=== PATIENT | male | born 1950 | race Caucasian/White ===

== ENCOUNTER 2017-01-22 12:27 | Inpatient (IN) | payer OTHER ==
[~2017-01-22] VITALS: Ht 170.2 cm; Wt 81.5 kg
--- NOTE | 2017-01-22 12:42 | EMERGENCY ROOM VISIT NOTE ---
History Report prepared by Marlene: Fransico Haas Under the Supervision of: Dr. Chao Yang M.D. First contact with patient: 12:37 Chief Complaint: CHEST PAIN Stated Complaint: CHEST PAINS, SENT BY DR JOHNSON- HIS PATIENT History of Present Illness The patient is a 66 year old male who presents to the Emergency Room with complaints of intermittent, burning, angina beginning a week ago. The patient states he has a history of these episodes. He reports he would take nitroglycerin, and it would go away. The patient notes the difference now is that he has to use more nitroglycerin than usual. He states he uses one pill throughout the day. The patient reports he is up every hour in the night because of his discomfort, and he uses 3-5 pills a night. He notes he has a history of a cardiac catheterization 9 year ago and was told he could have stents placed, but the combat control manager would not do it and recommended open heart surgery. The patient states he has not had stents placed or open heart surgery. He reports he currently does not have discomfort. The patient notes he took two baby aspirins 4 hours ago. Source of History: patient Onset: week ago Position: chest Quality: burning, other (angina) Timing: intermittent Modifying Factors (Relieving): other (nitroglycerin) Note: Denies any other symptoms Review of Systems See HPI for pertinent positives & negatives. A total of 10 systems reviewed and were otherwise negative. Past Medical & Surgical Medical Problems: (1) Bladder stone (2) Diabetes (3) Heart disease (4) HTN (hypertension) (5) Kidney disease (6) Unstable angina Family History Heart disease Hypertension Kidney disease Kidney stones Social History Smokeless Tobacco Use: No Alcohol Use: none Marital Status: Housing Status: lives with family Occupation Status: employed Current/Historical Medications Scheduled Amlodipine (Norvasc), 5 MG PO DAILY Ascorbic Acid (Ascorbic Acid), 1,000 MG PO DAILY Aspirin (Aspirin Ec), 81 MG PO DAILY Glimepiride (Glimepiride), 1 TAB PO BID Isosorbide Dinitrate (Isordil), 10 MG PO TID Metformin Hcl Er (Glucophage Er), 2 TABS PO DAILY Multivitamin (Multivitamin), 1 TAB PO DAILY Nebivolol Hcl (Bystolic), 20 MG PO DAILY Nitroglycerin (Nitrostat), 0.6 MG UT PRN Allergies Coded Allergies: Ciprofloxacin (Verified Allergy, Unknown, RASH, 01/22/17) Lisinopril (Verified Allergy, Unknown, SHORTNESS OF BREATH,RASH, 01/22/17) Physical Exam Vital Signs Date Time Temp Pulse Resp B/P (MAP) Pulse Ox O2 Delivery O2 Flow Rate FiO2 01/22/17 16:49 81 01/22/17 16:00 76 19 93 01/22/17 15:30 78 14 93 01/22/17 15:00 83 17 01/22/17 14:31 173/92 01/22/17 14:30 81 20 94 01/22/17 14:01 145/91 01/22/17 14:00 77 20 94 01/22/17 13:42 80 159/85 92 Nasal Cannula 2.0 01/22/17 13:31 159/85 01/22/17 13:30 81 16 91 01/22/17 13:17 79 16 92 Nasal Cannula 2.0 01/22/17 12:59 93 Nasal Cannula 01/22/17 12:50 87 Room Air 01/22/17 12:50 90 Nasal Cannula 2.0 01/22/17 12:47 88 01/22/17 12:38 87 Room Air 01/22/17 12:38 37.1 89 20 155/94 90 Room Air Physical Exam GENERAL: Patient is a healthy-appearing well-nourished 66 year old male. HEAD: Normocephalic atraumatic EYES: Ocular movements intact pupils equal and react to light OROPHARYNX mucous membranes are moist no exudates present no erythema or edema present NECK: Supple no nuchal rigidity CHEST: Good equal expansion LUNGS: Clear and equal to auscultation CARDIAC: Normal S1 and S2 ABDOMEN: Soft nontender no guarding BACK: No CVA tenderness EXTREMITIES: No pain upon palpation normal muscle strength in all groups no clubbing cyanosis or edema NEURO: Patient is following commands and answering questions appropriately. Alert and oriented x3 Cranial Nerves 2-12 grossly intact Medical Decision & Procedures ER Provider Diagnostic Interpretation: X-ray results as stated below per interpretation by me and the radiologist: CHEST ONE VIEW PORTABLE HISTORY: Atypical CHEST PAIN COMPARISON: None. FINDINGS: No pneumothorax. Small bilateral pleural effusions. The heart is mildly enlarged. There is diffuse interstitial and vascular thickening with bibasilar densities. IMPRESSION: 1. Cardiomegaly, small bilateral pleural effusions, and interstitial thickening consistent with mild pulmonary edema. 2. Bibasilar densities may represent the layering pleural fluid or consolidation. Electronically signed by: Henrik Castano M.D. 01/22/2017 2:03 PM Dictated Date/Time: 01/22/2017 2:02 PM Laboratory Results 01/22/17 12:47 Red Blood Count 4.71, Mean Corpuscular Volume 83.9, Mean Corpuscular Hemoglobin 30.1, Mean Corpuscular Hemoglobin Concent 35.9, Mean Platelet Volume 10.7, Neutrophils (%) (Auto) 73.0, Lymphocytes (%) (Auto) 18.9, Monocytes (%) (Auto) 5.6, Eosinophils (%) (Auto) 1.3, Basophils (%) (Auto) 0.8, Neutrophils # (Auto) 7.59, Lymphocytes # (Auto) 1.96, Monocytes # (Auto) 0.58, Eosinophils # (Auto) 0.14, Basophils # (Auto) 0.08 01/22/17 12:47 Test 01/22/17 12:47 01/22/17 14:13 01/22/17 14:42 White Blood Count 10.39 K/uL (4.8-10.8) Red Blood Count 4.71 M/uL (4.7-6.1) Hemoglobin 14.2 g/dL (14.0-18.0) Hematocrit 39.5 % (42-52) Mean Corpuscular Volume 83.9 fL (80-100) Mean Corpuscular Hemoglobin 30.1 pg (25-34) Mean Corpuscular Hemoglobin Concent 35.9 g/dl (32-36) Platelet Count 235 K/uL (130-400) Mean Platelet Volume 10.7 fL (7.4-10.4) Neutrophils (%) (Auto) 73.0 % Lymphocytes (%) (Auto) 18.9 % Monocytes (%) (Auto) 5.6 % Eosinophils (%) (Auto) 1.3 % Basophils (%) (Auto) 0.8 % Neutrophils # (Auto) 7.59 K/uL (1.4-6.5) Lymphocytes # (Auto) 1.96 K/uL (1.2-3.4) Monocytes # (Auto) 0.58 K/uL (0.11-0.59) Eosinophils # (Auto) 0.14 K/uL (0-0.5) Basophils # (Auto) 0.08 K/uL (0-0.2) RDW Standard Deviation 45.5 fL (36.4-46.3) RDW Coefficient of Variation 15.0 % (11.5-14.5) Immature Granulocyte % (Auto) 0.4 % Immature Granulocyte # (Auto) 0.04 K/uL (0.00-0.02) Prothrombin Time 10.9 SECONDS (9.0-12.0) Prothromb Time International Ratio 1.0 (0.9-1.1) Activated Partial Thromboplast Time 24.5 SECONDS (21.0-31.0) Partial Thromboplastin Ratio 0.9 Anion Gap 10.0 mmol/L (3-11) Est Creatinine Clear Calc Drug Dose 37.1 ml/min Estimated GFR () 38.9 Estimated GFR (Non- 33.6 BUN/Creatinine Ratio 18.4 (10-20) Estimated Average Glucose 209 mg/dl Hemoglobin A1c 8.9 % (4.5-5.6) Calcium Level 9.2 mg/dl (8.5-10.1) Total Bilirubin 0.7 mg/dl (0.2-1) Direct Bilirubin 0.2 mg/dl (0-0.2) Aspartate Amino Transf (AST/SGOT) 8 U/L (15-37) Alanine Aminotransferase (ALT/SGPT) 17 U/L (12-78) Alkaline Phosphatase 73 U/L (45-117) Total Creatine Kinase 56 U/L (39-308) Creatine Kinase MB 1.1 ng/ml (0.5-3.6) Creatine Kinase MB Ratio 2.0 (0-3.0) Troponin I < 0.015 ng/ml (0-0.045) Pro-B-Type Natriuretic Peptide 803 pg/ml (0-900) Total Protein 7.1 gm/dl (6.4-8.2) Albumin 3.5 gm/dl (3.4-5.0) Lipase 369 U/L (73-393) Beta-Hydroxybutyric Acid 2.03 mg/dL (0.2-2.81) Arterial Blood pH 7.43 (7.35-7.45) Arterial Blood Partial Pressure CO2 33 mmHg (35-46) Arterial Blood Partial Pressure O2 75 mm/Hg (80-95) Arterial Blood HCO3 21 mmol/L (19-24) Arterial Blood Oxygen Saturation 94.7 % (90-95) Arterial Blood Base Excess -2.0 mEq/L (-9-1.8) Arterial Blood Gas Delivery RA Misha Test POS (POS) Bedside Glucose 356 mg/dl (70-99) Labs reviewed by ED physician. Medications Administered Medications (Trade) Dose Ordered Sig/Naomi Route Start Time Stop Time Status Last Admin Dose Admin Aspirin (Aspirin Chew) 324 mg NOW STAT PO 01/22/17 12:43 01/22/17 12:44 DC 01/22/17 13:03 324 MG Levalbuterol (Xopenex 0.63 Mg/ 3 Ml Neb) 0.63 mg NOW STAT INH 01/22/17 12:58 01/22/17 13:00 DC 01/22/17 13:15 0.63 MG Insulin Human Regular (novoLIN-R U-100 PER UNIT) 10 units NOW STAT IV 01/22/17 13:36 01/22/17 13:38 DC 01/22/17 14:22 10 UNITS Furosemide (Lasix Inj) 40 mg NOW STAT IV 01/22/17 14:07 01/22/17 14:08 DC 01/22/17 14:24 40 MG Heparin Sodium/ Dextrose 1 ea Q15M N/A 01/22/17 16:41 02/21/17 16:40 01/22/17 17:00 1 EA Heparin Sodium/ Dextrose (Heparin 25,000 Unit/500ml D5W) 25,000 unit STK-MED ONCE .ROUTE 01/22/17 16:50 01/22/17 16:51 DC 01/22/17 16:58 25,000 UNIT ECG Indication: chest pain Rate (beats per minute): 86 Rhythm: normal sinus Findings: ST depression (Lateral), no ectopy Comparison ECG Date: no prior available ED Course 1238: Past medical records reviewed. The patient was evaluated in room A09B. A complete history and physical examination was performed. 1243: Ordered Aspirin 324 mg PO 1258: Ordered Levalbuterol 0.63mg INH 1336: Ordered Insulin Human Regular 10 units IV, Sodium Chloride 1000 ml @ 999 mls/hr IV 1341: I discussed the patient's case with [facility]. The patient will be evaluated for further management and care. 1351: Upon reexamination the patient is resting. I discussed results and treatment plan with the patient. He verbalizes agreement and understanding. 1407: Ordered Furosemide 40mg IV Medical Decision Differential diagnosis: Etiologies such as cardiac ischemia, aortic dissection, pulmonary embolism, pneumonia, pneumothorax, musculoskeletal, infections, pericarditis, myocarditis , esophageal rupture, gastrointestinal, as well as others were entertained. This is a 66-year-old male who has a history of significant coronary artery disease who presents to the emergency department after needing order in larger amounts of nitroglycerin at home over the past several weeks. The patient's glucose levels found to be in 400s and he appears to be in acute renal failure. In addition he appears to have bilateral pleural effusions on chest x-ray. The patient is hypoxic in the emergency department therefore he was given breathing treatments and started on Lasix. Due to the elevation in his creatinine we're unable to obtain a CAT scan of the chest in the emergency department. I did discuss the case with the hospitalist service who agreed to see the patient. Patient was in agreement with the treatment plan. Medication Reconcilliation Current Medication List: was personally reviewed by me Blood Pressure Screening Patient's blood pressure: Elevated blood pressure Monitored by hospitalist. Consults Time Called: 1339 Consulting Physician: [facility] Returned Call: 1341 I discussed the patient's case with [facility]. The patient will be evaluated for further management and care. Impression Primary Impression: Chest pain Additional Impressions: Acute renal failure Hyperglycemia Scribe Attestation The scribe's documentation has been prepared under my direction and personally reviewed by me in its entirety. I confirm that the note above accurately reflects all work, treatment, procedures, and medical decision making performed by me. Departure Information Dispostion Being Evaluated By Hospitalist Referrals Manuelito Johnson M.D. (PCP) Patient Instructions [facility] Problem Qualifiers Primary Impression: Chest pain Chest pain type: unspecified Qualified Codes: R07.9 - Chest pain, unspecified Additional Impressions: Acute renal failure Acute renal failure type: unspecified Qualified Codes: N17.9 - Acute kidney failure, unspecified
[2017-01-22] MEDS ORDERED: ASPIRIN 81 MG CHEW PO STA (12:43)
[2017-01-22] MEDS ORDERED: LEVALBUTEROL 0.63MG/3 ML NEB INH STA (12:58)
[2017-01-22 13:14] LABS: BASO % 0.8 %; BASO ABS # 0.08 K/uL (0-0.2); COMPLETE YES; EOS % 1.3 %; HEMATOCRIT 39.5 % (42-52); IG% 0.4 %; LYMPH % 18.9 %; LYMPH ABS # 1.96 K/uL (1.2-3.4); MEAN CELL VOLUME 83.9 fL (80-100); MEAN CORPUSCULAR HEMOGLOBIN 30.1 pg (25-34); MEAN CORPUSCULAR HGB CONC 35.9 g/dl (32-36); MEAN PLATELET VOLUME 10.7 fL (7.4-10.4); MONO % 5.6 %; PLATELET COUNT 235 K/uL (130-400); RED BLOOD COUNT 4.71 M/uL (4.7-6.1); WHITE BLOOD COUNT 10.39 K/uL (4.8-10.8)
[2017-01-22 13:17] VITALS: PULSE 79; O2SAT 92
[2017-01-22] MEDS ORDERED: NEBI20TA2 PO (13:21)
[2017-01-22] MEDS ORDERED: ASPI81TA28 PO (13:21)
[2017-01-22] MEDS ORDERED: AMLO-110 PO (13:21)
[2017-01-22] MEDS ORDERED: METF500T5 PO (13:21)
[2017-01-22] MEDS ORDERED: ASCO100061 PO (13:21)
[2017-01-22] MEDS ORDERED: ISOS10TA2 PO (13:21)
[2017-01-22] MEDS ORDERED: GLIM2TAB2 PO (13:21)
[2017-01-22] MEDS ORDERED: MULT-506 PO (13:21)
[2017-01-22] MEDS ORDERED: [UNRECOGNIZED DRUG - CODE] UT (13:21)
[2017-01-22 13:26] LABS: PARTIAL THROMBOPLASTIN RATIO 0.9; PROTHROMBIN TIME (PATIENT) 10.9 SECONDS (9.0-12.0)
[2017-01-22 13:35] LABS: ALT/SGPT 17 U/L (12-78); AST/SGOT 8 U/L (15-37); BLOOD UREA NITROGEN 37 mg/dl (7-18); BUN/CREATININE RATIO 18.4 (10-20); CALCIUM 9.2 mg/dl (8.5-10.1); CARBON DIOXIDE 21 mmol/L (21-32); CHLORIDE 102 mmol/L (98-107); CREATININE 2.01 mg/dl (0.60-1.40); GLUCOSE 412 mg/dl (70-99); POTASSIUM 4.2 mmol/L (3.5-5.1); SODIUM 133 mmol/L (136-145)
[2017-01-22] MEDS ORDERED: NovoLIN-R INSULIN PER UNIT CHARGE IV STA (13:36)
[2017-01-22] MEDS ORDERED: SODIUM CHLORIDE 0.9% 1000ML 1,000 ML IV STA (13:36)
[2017-01-22 13:40] LABS: ALKALINE PHOSPHATASE 73 U/L (45-117)
--- NOTE | 2017-01-22 14:05 | DIAGNOSTIC IMAGING REPORT ---
CHEST ONE VIEW PORTABLE HISTORY: Atypical CHEST PAIN COMPARISON: None. FINDINGS: No pneumothorax. Small bilateral pleural effusions. The heart is mildly enlarged. There is diffuse interstitial and vascular thickening with bibasilar densities. IMPRESSION: 1. Cardiomegaly, small bilateral pleural effusions, and interstitial thickening consistent with mild pulmonary edema. 2. Bibasilar densities may represent the layering pleural fluid or consolidation. Electronically signed by: Henrik Castano M.D. 01/22/2017 2:03 PM Dictated Date/Time: 01/22/2017 2:02 PM
[2017-01-22] MEDS ORDERED: FUROSEMIDE 40 MG/4 ML VIAL IV STA (14:07)
[2017-01-22 14:12] LABS: BETA-HYDROXYBUTYRATE 2.03 mg/dL (0.2-2.81)
[2017-01-22 14:28] LABS: ESTIMATED AVERAGE GLUCOSE 209 mg/dl; HA1C FLAG Normal (Normal)
[2017-01-22 14:38] LABS: ARTERIAL BLD GAS O2 SATURATION 94.7 % (90-95); ARTERIAL BLOOD GAS HCO3 21 mmol/L (19-24); ARTERIAL BLOOD GAS PO2 75 mm/Hg (80-95); ARTERIAL BLOOD GAS pH 7.43 (7.35-7.45)
[2017-01-22 14:40] LABS: ALLEN TEST POS (POS); O2 ADMINISTRATION RA
[2017-01-22] MEDS ORDERED: ACETAMINOPHEN 325 MG TAB PO PRN (16:00)
[2017-01-22] MEDS ORDERED: NITROGLYCERIN 0.4 MG SL PER TAB CHARGE SL PRN (16:00)
[2017-01-22] MEDS ORDERED: MoRPHine SULFATE 2 MG/ML CARP IV PRN (16:00)
[2017-01-22] MEDS ORDERED: ONDANSETRON INJ 2 MG/ML 2 ML VIAL IV PRN (16:00)
[2017-01-22] MEDS ORDERED: PHARMACY GLYCEMIC MGMT CONSULT PRN (16:44)
[2017-01-22] MEDS ORDERED: HEPARIN 25000 UNIT/500 ML D5W ONE ×2 (16:50→16:51)
[2017-01-22 17:32] VITALS: BP 155/92; PULSE 76; TEMP 36.3; O2SAT 91; Ht 170.2 cm; Wt 81.5 kg
[2017-01-22] MEDS ORDERED: HEPARIN 25,000 UNIT/500ML D5W 500 ML IV PRN (17:45)
[2017-01-22 17:51] VITALS: O2SAT 91
--- NOTE | 2017-01-22 17:59 | HISTORY & PHYSICAL EXAMINATION ---
DATE OF ADMISSION: 01/22/2017 CHIEF COMPLAINT: Chest pain. HISTORY OF PRESENT ILLNESS: This is a 66-year-old male with past medical history significant for CAD, type 2 diabetes, hypertension, hyperlipidemia, BPH, presents with chest pain. The patient had a cardiac catheterization about in 2008 which showed multivessel disease and was advised for CABG. The patient declined and he opted for medical management and patient says he was doing okay if he stayed in his limits, but since last 4 weeks he is reporting more chest pain whenever he exerted or with anxiety or stress and it got more and more worse since last 1 week and he was taking nitro almost every hour in the nighttime, so he went in to see his rubber boots and shoes repairer yesterday and was advised to go to the ER urgently, but patient did not come yesterday. He says he did not had any help to come to the ER, so he came to the ER today. In the ER initially when he came in he was hypoxic on room air and chest x-ray showed some congestion with Lasix and oxygen his oxygenation has improved. He is hemodynamically stable. Denies any nausea, vomiting, no sweating, no dizziness, no headaches, no blurred vision, no cough, no fever, no chills. Has some runny nose. No sore throat, no difficulty swallowing. Normal bowel and bladder movements. Appetite is okay. No blood in the stool, no blood in the urine, had some swelling in the legs, but denies any orthopnea or PND. ALLERGIES: LISINOPRIL, CIPROFLOXACIN. PAST MEDICAL HISTORY: As mentioned above. PAST SURGICAL HISTORY: Cardiac catheterization. MEDICATIONS: Currently, the patient is on Isordil 10 mg p.o. t.i.d., amlodipine 5 mg p.o. daily, nitroglycerin 0.6 mg sublingual p.r.n., metformin ER 1000 mg p.o. daily, Januvia 50 mg p.o. daily, Amaryl 2 mg p.o. b.i.d., Bystolic 20 mg p.o. daily, aspirin 81 mg p.o. daily. FAMILY HISTORY: Significant for father had LA in his 40s and 60s and of LA in his 70s. Mother has renal disease history. SOCIAL HISTORY: . No smoking history. No alcohol, no drug use. REVIEW OF SYMPTOMS: As per HPI. Rest of the review of symptoms negative. PHYSICAL EXAMINATION: GENERAL: The patient is of moderate build, not in distress. VITAL SIGNS: Temperature 37.1, pulse 80, respiratory rate 16, blood pressure 159/85, oxygen 92% on 2 liters. HEENT: No pallor, no icterus. Pupils equal, round, and reactive to light. NECK: No JVD, no neck masses, no carotid bruits. CARDIOVASCULAR: S1, S2 heard, regular rate and rhythm, no murmur, no gallop. RESPIRATORY SYSTEM: Normal AP diameter. No accessory muscle use. No wheezing. Mild bibasilar crackles. ABDOMEN: Soft, bowel sounds present. Nontender. No distention. CENTRAL NERVOUS SYSTEM: Cranial nerves II-XII grossly intact. Nonfocal. EXTREMITIES: Bilateral lower extremity edema present. No erythema seen. LABORATORIES: Sodium 133, potassium 4.2, chloride 102, bicarbonate 21, BUN 37, creatinine 2.01. Glucose 412, HbA1c 8.9, calcium 9.2, total bilirubin 0.7, direct bilirubin 0.2, AST 8, ALT 17, alkaline phosphatase 73, total creatine kinase 56, troponin I less than 0.015. BNP 803, lipase 369. PT 10.9, INR 1, PTT 24.5. ABG; pH 7.4, pCO2 33, pO2 75, bicarbonate 21, oxygen 94% on room air. Chest x-ray shows cardiomegaly, small bilateral pleural effusions and interstitial thickening consistent with mild pulmonary edema, bibasilar density, layering pleural fluid or consolidation. EKG: Shows normal sinus rhythm with rate of [address] depressions in V3, V4, V5 and V6 leads. ASSESSMENT AND PLAN: This is a 66-year-old male who presents with chest pain. 1. Unstable angina, having chest pains every hour in the night taking nitroglycerins, history of coronary artery disease and multivessel disease from cardiac catheterization in 2008 and was advised of coronary artery bypass grafting, but the patient declined and currently on medical management. EKG shows ST depressions in lateral leads. Troponin is negative. We will follow the serial cardiac enzymes, repeat EKGs, echocardiogram. We will place him on IV heparin, nitro paste, continue home medication Bystolic. Hold Isordil while on nitro paste.Close monitor in the tele floor. Cardiology consulted. 2. Possible congestive heart failure. Chest x-ray shows mild pulmonary edema and patient was hypoxic on room air on presentation. Received IV Lasix in the ER. We will follow echocardiogram. We will place him on IV Lasix 20 mg b.i.d., daily weights, I's and O's. Continue nitro paste. 3.Arf on CKD stage 3 .Baseline Cr 1.5 to 1.7. presented with Cr 2.01. Will f/u labs on iv Lasix. 3. Diabetes, HbA1c was 8.9. The patient may need some Lantus on discharge. We will hold metformin, Januvia, and glimepiride and place him on Lantus and insulin sliding scale while in the hospital. Close monitor, pharmacy consult for glycemic management and diabetic teaching. 4. Hypertension. Continue home medication of , amlodipine, Bystolic, currently also on nitro paste. We will monitor the blood pressure. 5. History of benign prostatic hypertrophy. We will monitor for any urinary retention. 6. Deep venous thrombosis prophylaxis, on IV heparin. DISPOSITION: Admit to tele floor. Expect to discharge home and follow with family doctor and cardiology. Level 1 full code. MTDD
[2017-01-22] MEDS ORDERED: INSULIN ASPART 100 UNITS/ML 3 ML PEN SC ONE (18:45)
--- NOTE | 2017-01-22 19:33 | Pharmacy Progress Note ---
Glycemic Control Intl Consult Date of Service Jan 22, 2017. Scope Glycemic Pharmacist consulted by Dr Rios on 01/22/17 for glycemic control and to write orders per [facility] inpatient glycemic control protocol Objective Weight (Kilograms): 82.000 Accuchecks BSG (last 24hrs): Test 01/22/17 12:47 01/22/17 14:42 01/22/17 18:02 Random Glucose 412 mg/dl (70-99) Bedside Glucose 356 mg/dl (70-99) 291 mg/dl (70-99) Laboratory Data (last 24hrs) Test 01/22/17 12:47 Anion Gap 10.0 mmol/L BUN/Creatinine Ratio 18.4 Blood Urea Nitrogen 37 mg/dl Creatinine 2.01 mg/dl Hemoglobin A1c 8.9 % Potassium Level 4.2 mmol/L Sodium Level 133 mmol/L White Blood Count 10.39 K/uL Red Blood Count 4.71 M/uL Hemoglobin 14.2 g/dL Hematocrit 39.5 % Mean Corpuscular Volume 83.9 fL Mean Corpuscular Hemoglobin 30.1 pg Mean Corpuscular Hemoglobin Concent 35.9 g/dl Platelet Count 235 K/uL Mean Platelet Volume 10.7 fL Neutrophils (%) (Auto) 73.0 % Lymphocytes (%) (Auto) 18.9 % Monocytes (%) (Auto) 5.6 % Eosinophils (%) (Auto) 1.3 % Basophils (%) (Auto) 0.8 % Neutrophils # (Auto) 7.59 K/uL Lymphocytes # (Auto) 1.96 K/uL Monocytes # (Auto) 0.58 K/uL Eosinophils # (Auto) 0.14 K/uL Basophils # (Auto) 0.08 K/uL HbA1c Test 01/22/17 12:47 Hemoglobin A1c 8.9 % (4.5-5.6) H Recent Pertinent Medications Outpatient Anti-diabetic Regimen: * metformin ER 1000 mg PO BID plus glimepiride 2 mg PO BID Risk Factors for Insulin Resistance: * IVF: heparin infusion * Diet: type 2 diabetic diet Assessment & Plan ASSESSMENT: * Mr Bright is a 66 y/o M with a PMH of unstable angina who presents with chest pain. He is on two oral antidiabetic medications and he has an elevated HbA1C. His blood sugar on presentation was 412 mg/dL. It decreased to 356 mg/dL and after 10 units of IV insulin was 291 mg/dL. * For Lantus, 0.2 units/kg were selected for tonight's dose and as well as tomorrow as uncertain how much insulin the patient will require. This estimates around 60 units per day which is 0.7 units/kg which is reasonable for this patient. * Weight-based stress of 2 parameters were selected as a starting point for the patient's insulin. This may be adjusted. PLAN FOR INPATIENT GLYCEMIC CONTROL: * Holding outpatient oral diabetes medications * Basal insulin with LANTUS 15 units SQ BID * Correctional Insulin with NOVOLOG / REGULAR per scale ACHS or Q6hrs while NPO * Goal Range: Low 110 mg/dL - High 140 mg/dL * Correction Factor: 30 mg/dL/unit * Nutritional / Prandial insulin per carb ratio of 1 unit per 10 grams CHO consumed * Please note that the plan above was derived based on current level of insulin resistance and hospital stress. These recommendations are appropriate for inpatient admission only. Plan of care upon discharge will need to be reassessed to avoid potential outpatient hypo/hyperglycemia. Thank you.
[2017-01-22 20:00] VITALS: O2SAT 92
[2017-01-22] MEDS: FUROSEMIDE INJ 20 MG in SYRINGE 0 ML IV SCH (20:03)
[2017-01-22] MEDS: NITROGLYCERIN OINT 2% 1GM PACKET EXT SCH (20:06)
[2017-01-22] MEDS: INSULIN ASPART 100 UNITS/ML 3 ML PEN SC SCH (20:09)
[2017-01-22 20:22] VITALS: BP 156/87; PULSE 76; TEMP 36.5; O2SAT 93
[2017-01-22] MEDS ORDERED: INSULIN GLARGINE SOLOSTAR 100 UNITS/ML 3 ML PEN SC SCH ×2 (21:00)
--- NOTE | 2017-01-22 21:30 | Progress Note ---
Internal Med Progress Note Date of Service: Jan 22, 2017. Provider Documentation: Hematuria noted by RN through Odonnell catheter. Patient denies flank pain, bladder symptoms. UA WBC est, RBC, epithelial cells AP Hematuria secondary to ? Complicated UTI hx bladder stones/bilateral hydroureter as per records Contaminated specimen Patient not septic. Hold IV heparin for now. Trend H&H. Follow urine cultures, IV Cefepime. Resume Heparin if HH stable and hematuria resolves. May need Urology consult if hematuria persistent. (Patient known to [facility].) Will relay to AM provider. Vital Signs: Date Time Temp Pulse Resp B/P (MAP) Pulse Ox O2 Delivery O2 Flow Rate FiO2 01/23/17 07:16 37.1 71 20 145/81 (102) 94 Room Air 01/23/17 04:00 92 Room Air 01/23/17 03:34 36.7 79 18 148/77 (100) 92 Room Air 01/23/17 00:00 92 Room Air 01/22/17 23:27 36.4 74 18 133/80 (97) 92 Room Air 01/22/17 20:22 36.5 76 20 156/87 (110) 93 Room Air 01/22/17 20:00 92 Room Air 01/22/17 17:51 91 Room Air 01/22/17 17:32 36.3 76 20 155/92 91 Room Air 01/22/17 17:19 75 17 136/87 93 Nasal Cannula 2.0 01/22/17 16:49 81 01/22/17 16:00 76 19 93 01/22/17 15:30 78 14 93 01/22/17 15:00 83 17 01/22/17 14:31 173/92 01/22/17 14:30 81 20 94 01/22/17 14:01 145/91 01/22/17 14:00 77 20 94 01/22/17 13:42 80 159/85 92 Nasal Cannula 2.0 01/22/17 13:31 159/85 01/22/17 13:30 81 16 91 01/22/17 13:17 79 16 92 Nasal Cannula 2.0 01/22/17 12:59 93 Nasal Cannula 01/22/17 12:50 87 Room Air 01/22/17 12:50 90 Nasal Cannula 2.0 01/22/17 12:47 88 01/22/17 12:38 87 Room Air 01/22/17 12:38 37.1 89 20 155/94 90 Room Air Lab Results: Results Past 24 Hours Test 01/22/17 12:47 01/22/17 14:13 01/22/17 14:42 01/22/17 15:27 Range/Units White Blood Count 10.39 4.8-10.8 K/uL Red Blood Count 4.71 4.7-6.1 M/uL Hemoglobin 14.2 14.0-18.0 g/dL Hematocrit 39.5 42-52 % Mean Corpuscular Volume 83.9 80-100 fL Mean Corpuscular Hemoglobin 30.1 25-34 pg Mean Corpuscular Hemoglobin Concent 35.9 32-36 g/dl Platelet Count 235 130-400 K/uL Mean Platelet Volume 10.7 7.4-10.4 fL Neutrophils (%) (Auto) 73.0 % Lymphocytes (%) (Auto) 18.9 % Monocytes (%) (Auto) 5.6 % Eosinophils (%) (Auto) 1.3 % Basophils (%) (Auto) 0.8 % Neutrophils # (Auto) 7.59 1.4-6.5 K/uL Lymphocytes # (Auto) 1.96 1.2-3.4 K/uL Monocytes # (Auto) 0.58 0.11-0.59 K/uL Eosinophils # (Auto) 0.14 0-0.5 K/uL Basophils # (Auto) 0.08 0-0.2 K/uL RDW Standard Deviation 45.5 36.4-46.3 fL RDW Coefficient of Variation 15.0 11.5-14.5 % Immature Granulocyte % (Auto) 0.4 % Immature Granulocyte # (Auto) 0.04 0.00-0.02 K/uL Prothrombin Time 10.9 9.0-12.0 SECONDS Prothromb Time International Ratio 1.0 0.9-1.1 Activated Partial Thromboplast Time 24.5 21.0-31.0 SECONDS Partial Thromboplastin Ratio 0.9 Sodium Level 133 136-145 mmol/L Potassium Level 4.2 3.5-5.1 mmol/L Chloride Level 102 98-107 mmol/L Carbon Dioxide Level 21 21-32 mmol/L Anion Gap 10.0 3-11 mmol/L Blood Urea Nitrogen 37 7-18 mg/dl Creatinine 2.01 0.60-1.40 mg/dl Est Creatinine Clear Calc Drug Dose 37.1 ml/min Estimated GFR () 38.9 Estimated GFR (Non- 33.6 BUN/Creatinine Ratio 18.4 10-20 Random Glucose 412 70-99 mg/dl Estimated Average Glucose 209 mg/dl Hemoglobin A1c 8.9 4.5-5.6 % Calcium Level 9.2 8.5-10.1 mg/dl Total Bilirubin 0.7 0.2-1 mg/dl Direct Bilirubin 0.2 0-0.2 mg/dl Aspartate Amino Transf (AST/SGOT) 8 15-37 U/L Alanine Aminotransferase (ALT/SGPT) 17 12-78 U/L Alkaline Phosphatase 73 45-117 U/L Total Creatine Kinase 56 39-308 U/L Creatine Kinase MB 1.1 0.5-3.6 ng/ml Creatine Kinase MB Ratio 2.0 0-3.0 Troponin I < 0.015 0-0.045 ng/ml Pro-B-Type Natriuretic Peptide 803 0-900 pg/ml Total Protein 7.1 6.4-8.2 gm/dl Albumin 3.5 3.4-5.0 gm/dl Lipase 369 73-393 U/L Beta-Hydroxybutyric Acid 2.03 0.2-2.81 mg/dL Arterial Blood pH 7.43 7.35-7.45 Arterial Blood Partial Pressure CO2 33 35-46 mmHg Arterial Blood Partial Pressure O2 75 80-95 mm/Hg Arterial Blood HCO3 21 19-24 mmol/L Arterial Blood Oxygen Saturation 94.7 90-95 % Arterial Blood Base Excess -2.0 -9-1.8 mEq/L Arterial Blood Gas Delivery RA Misha Test POS POS Bedside Glucose 356 334 70-99 mg/dl Test 01/22/17 18:02 01/22/17 19:51 01/22/17 21:45 01/23/17 04:09 Range/Units Bedside Glucose 291 280 70-99 mg/dl White Blood Count 9.76 11.03 4.8-10.8 K/uL Red Blood Count 4.71 4.55 4.7-6.1 M/uL Hemoglobin 14.3 13.4 14.0-18.0 g/dL Hematocrit 39.2 38.2 42-52 % Mean Corpuscular Volume 83.2 84.0 80-100 fL Mean Corpuscular Hemoglobin 30.4 29.5 25-34 pg Mean Corpuscular Hemoglobin Concent 36.5 35.1 32-36 g/dl Platelet Count 213 217 130-400 K/uL Mean Platelet Volume 10.2 10.5 7.4-10.4 fL Neutrophils (%) (Auto) 55.1 68.0 % Lymphocytes (%) (Auto) 33.0 21.3 % Monocytes (%) (Auto) 8.3 8.3 % Eosinophils (%) (Auto) 2.4 1.6 % Basophils (%) (Auto) 0.7 0.5 % Neutrophils # (Auto) 5.38 7.51 1.4-6.5 K/uL Lymphocytes # (Auto) 3.22 2.35 1.2-3.4 K/uL Monocytes # (Auto) 0.81 0.91 0.11-0.59 K/uL Eosinophils # (Auto) 0.23 0.18 0-0.5 K/uL Basophils # (Auto) 0.07 0.05 0-0.2 K/uL RDW Standard Deviation 45.3 45.2 36.4-46.3 fL RDW Coefficient of Variation 15.0 14.9 11.5-14.5 % Immature Granulocyte % (Auto) 0.5 0.3 % Immature Granulocyte # (Auto) 0.05 0.03 0.00-0.02 K/uL Sodium Level 136 133 136-145 mmol/L Potassium Level 3.2 4.4 3.5-5.1 mmol/L Chloride Level 102 102 98-107 mmol/L Carbon Dioxide Level 25 24 21-32 mmol/L Anion Gap 9.0 7.0 3-11 mmol/L Blood Urea Nitrogen 37 37 7-18 mg/dl Creatinine 2.07 1.96 0.60-1.40 mg/dl Est Creatinine Clear Calc Drug Dose 36.0 38.0 ml/min Estimated GFR () 37.6 40.1 Estimated GFR (Non- 32.4 34.6 BUN/Creatinine Ratio 17.8 19.0 10-20 Random Glucose 187 220 70-99 mg/dl Calcium Level 9.5 9.2 8.5-10.1 mg/dl Magnesium Level 1.7 1.8 1.8-2.4 mg/dl Troponin I 0.090 0.064 0-0.045 ng/ml Activated Partial Thromboplast Time 24.5 21.0-31.0 SECONDS Partial Thromboplastin Ratio 0.9 Triglycerides Level 329 0-150 mg/dl Cholesterol Level 238 0-200 mg/dl HDL Cholesterol 32 mg/dl LDL Cholesterol, Calculated 140 mg/dl VLDL Cholesterol, Calculated 66 mg/dl Cholesterol/HDL Ratio 7.4 Test 01/23/17 07:27 01/23/17 08:12 Range/Units Bedside Glucose 221 70-99 mg/dl Troponin I 0.092 0-0.045 ng/ml
[2017-01-22 21:56] LABS: BASO % 0.7 %; BASO ABS # 0.07 K/uL (0-0.2); COMPLETE YES; EOS % 2.4 %; HEMATOCRIT 39.2 % (42-52); IG% 0.5 %; LYMPH ABS # 3.22 K/uL (1.2-3.4); MEAN CELL VOLUME 83.2 fL (80-100); MEAN CORPUSCULAR HEMOGLOBIN 30.4 pg (25-34); MEAN CORPUSCULAR HGB CONC 36.5 g/dl (32-36); MEAN PLATELET VOLUME 10.2 fL (7.4-10.4); MONO % 8.3 %; NEUT % 55.1 %; PLATELET COUNT 213 K/uL (130-400); RED BLOOD COUNT 4.71 M/uL (4.7-6.1); WHITE BLOOD COUNT 9.76 K/uL (4.8-10.8)
[2017-01-22 22:16] LABS: BUN/CREATININE RATIO 17.8 (10-20); CALCIUM 9.5 mg/dl (8.5-10.1); CREATININE 2.07 mg/dl (0.60-1.40); MAGNESIUM 1.7 mg/dl (1.8-2.4); POTASSIUM 3.2 mmol/L (3.5-5.1)
[2017-01-22] MEDS ORDERED: POTASSIUM CHLORIDE 10 MEQ TABCR PO STA (22:38)
[2017-01-22] MEDS ORDERED: MAGNESIUM SULFATE 1GM / D5W 1 GM in PREMIXED IN D5W 100 ML IV ONE (22:45)
[2017-01-22 23:06] LABS: URINE APPEARANCE CLOUDY (CLEAR); URINE BILIRUBIN NEG (NEG); URINE COLOR YELLOW; URINE NITRITE NEG (NEG); URINE SPECIFIC GRAVITY 1.016 (1.000-1.030); UROBILINOGEN NEG (NEG); ZZURINE CULT IF INDIC CATH YES
[2017-01-22 23:07] LABS: MANUAL MICROSCOPIC REQUIRED? NO; REVIEW REQ? NO
[2017-01-22 23:27] VITALS: BP 133/80; PULSE 74; TEMP 36.4; O2SAT 92
[2017-01-22] MEDS ORDERED: CEFEPIME IV 2,000 MG in SYRINGE 7.5 ML IV STA (23:27)
[2017-01-22] MEDS ORDERED: CEFEPIME IV 2,000 MG in DEXTROSE 5% 100ML 100 ML IV ONE (23:30)
[2017-01-23] VITALS (7 sets, daily range): BP systolic 130–148; BP diastolic 77–82; PULSE 71–79; TEMP 36.7–37.2; O2SAT 92–94
[2017-01-23] MEDS ORDERED: POTASSIUM CHLORIDE 10 MEQ TABCR PO ONE (01:00)
[2017-01-23] MEDS: NITROGLYCERIN OINT 2% 1GM PACKET EXT SCH ×3 (02:56→13:59)
[2017-01-23 04:28] LABS: BASO % 0.5 %; BASO ABS # 0.05 K/uL (0-0.2); COMPLETE YES; EOS % 1.6 %; HEMATOCRIT 38.2 % (42-52); IG% 0.3 %; LYMPH % 21.3 %; LYMPH ABS # 2.35 K/uL (1.2-3.4); MEAN CORPUSCULAR HEMOGLOBIN 29.5 pg (25-34); MEAN CORPUSCULAR HGB CONC 35.1 g/dl (32-36); MEAN PLATELET VOLUME 10.5 fL (7.4-10.4); MONO % 8.3 %; PLATELET COUNT 217 K/uL (130-400); RED BLOOD COUNT 4.55 M/uL (4.7-6.1); WHITE BLOOD COUNT 11.03 K/uL (4.8-10.8)
[2017-01-23 04:40] LABS: PARTIAL THROMBOPLASTIN RATIO 0.9
[2017-01-23 05:00] LABS: CREATININE 1.96 mg/dl (0.60-1.40); POTASSIUM 4.4 mmol/L (3.5-5.1)
[2017-01-23] MEDS ORDERED: TRAMADOL HCL 50 MG TAB PO PRN (05:00)
[2017-01-23 05:01] LABS: CALCIUM 9.2 mg/dl (8.5-10.1); CHOLESTEROL/HDL RATIO 7.4; MAGNESIUM 1.8 mg/dl (1.8-2.4)
[2017-01-23] MEDS ORDERED: ISOSORBIDE DINITRATE 10 MG TAB PO SCH (07:00)
[2017-01-23] MEDS ORDERED: PERFLUTREN LIPID MICROSPHERE (DEFINITY) IV ONE (08:04)
--- NOTE | 2017-01-23 08:56 | DIAGNOSTIC IMAGING REPORT ---
VENOUS DOPPLER LWR EXT BILA CLINICAL HISTORY: 66 years-old Male presenting with leg cramps. TECHNIQUE: Real-time grayscale and color and spectral Doppler ultrasound imaging of the veins of the bilateral lower extremities was performed. Compression and augmentation were also utilized. COMPARISON: None. FINDINGS: Right: Common femoral vein: Patent. Femoral vein: Patent. Greater saphenous vein: Patent. Popliteal vein: Patent. Calf veins: Patent. Left: Common femoral vein: Patent. Femoral vein: Patent. Greater saphenous vein: Patent. Popliteal vein: Patent. Calf veins: Patent. Other: None. IMPRESSION: No evidence of deep venous thrombosis. Electronically signed by: Oj Starkey M.D. 01/23/2017 8:55 AM Dictated Date/Time: 01/23/2017 8:54 AM
[2017-01-23] MEDS ORDERED: NEBIVOLOL HCL 5 MG TAB PO SCH (09:00)
[2017-01-23] MEDS ORDERED: ASCORBIC ACID 500 MG TAB PO SCH (09:00)
[2017-01-23] MEDS ORDERED: POTASSIUM CHLORIDE 10 MEQ TABCR PO SCH (09:00)
[2017-01-23] MEDS ORDERED: CEFEPIME CONSULT ACTIVE PRN ×2 (09:00)
[2017-01-23] MEDS ORDERED: ASPIRIN 81 MG ECTAB PO SCH (09:00)
[2017-01-23] MEDS ORDERED: MULTIVITAMIN TAB PO SCH (09:00)
[2017-01-23] MEDS ORDERED: INSULIN GLARGINE SOLOSTAR 100 UNITS/ML 3 ML PEN SC SCH ×2 (09:00→21:00)
[2017-01-23] MEDS ORDERED: AMLODIPINE BESYLATE 5 MG TAB PO SCH (09:00)
--- NOTE | 2017-01-23 09:21 | ECHOCARDIOGRAM REPORT ---
*NOTICE TO RECEIVING REPUBLICAN AGENCY This information is strictly Confidential and protected under [place] law. [place] law prohibits you from making any further disclosure of this information unless further disclosure is expressly permitted by the written consent of the person to whom it pertains or is authorized by law. A general authorization for the release of medical or other information is not sufficient for this purpose. Hospital accepts no responsibility if the information is made available to any other person, INCLUDING THE PATIENT. Interpretation Summary * Name: NIRMAL CONTE Study Date: 01/23/2017 07:27 AM BP: 145/81 mmHg * Patient Location: [id number] HR: 71 * : 1950 (M/d/yyyy) Gender: Male Height: 67 in * Age: 66 yrs Ethnicity: [place] Weight: 180 lb * Ordering Physician: Hugh Rios * Referring Physician: Manuelito Johnson * Performed By: Lefty Jordan RDCS * * Reason For Study: Chest pain * BSA: 1.9 m2 * -- Conclusions -- * Normal wall thickness with mild concentric LVH. * Akinesis of the basal inferior/inferolateral and mid inferior garza. Moderate hypokinesis of the basal/mid segments of the inferoseptal, anterolateral, inferolateral and apical inferior garza. Normal wall motion of the anterior and anteroseptal garza. * Moderately reduced LV systolic function, EF 35-40%. * Grade II diastolic dysfunction. * Aortic valve sclerosis mild, without significant aortic valvular stenosis. Mild aortic regurgitation. * Moderate to severe mitral regurgitation. * Mild left atrial enlargement. * No previous studies available for comparison. Procedure Details * A complete two-dimensional transthoracic echocardiogram was performed (2D, M-mode, Doppler and color flow Doppler). * The study was technically difficult, but visualization was adequate with the administration of Definity ultrasound contrast. * A contrast injection of Definity was performed to improve assessment of LV function. * Contrast was injected into an intravenous site in the left arm. * One vial of Definity ultrasound contrast was diluted in normal saline to a total volume of 10 ml. A total of '3' ml of solution was administered during imaging. * Lot # [id number] of Definity utilized for procedure. * Expiration date . * The attending nurse who injected the contrast agent was Karen Preciado RN. Left Ventricle * The left ventricle is normal in size. * There is no thrombus. * There is mild concentric left ventricular hypertrophy. * Left ventricular systolic function is moderately reduced. * Ejection Fraction = 35-40%. * Akinesis of the basal inferior/inferolateral and mid inferior garza. Moderate hypokinesis of the basal/mid segments of the inferoseptal, anterolateral, inferolateral and apical inferior garza. Normal wall motion of the anterior and anteroseptal garza. Right Ventricle * The right ventricular cavity size is normal (basal dimension <4.2 cm in right ventricular apical 4-chamber view). * The right ventricular systolic function is normal as assessed by tricuspid annular plane systolic excursion (TAPSE) (normal >1.5 cm). Atria * The left atrium is mildly dilated. * Right atrial size is normal. * No ASD detected; PFO is not assessed. Mitral Valve * The mitral valve leaflets appear thickened, but open well. * There is no mitral valve stenosis. * There is moderate to severe mitral regurgitation. * The mitral regurgitant jet is eccentrically directed. Tricuspid Valve * The tricuspid valve is normal in structure and function. Aortic Valve * The aortic valve is trileaflet. * Aortic valve sclerosis mild, without significant aortic valvular stenosis. * Mild aortic regurgitation. Pulmonic Valve * The pulmonary valve is not well seen, but the Doppler examination is normal without significant regurgitation or stenosis. Great Vessels * The aortic root and proximal ascending aorta are normal sized. Pericardium/Pleural * There is no pericardial effusion. Left Ventricular Diastolic Function * Diastolic dysfunction, Grade II (pseudonormalization pattern). MMode 2D Measurements and Calculations IVSd 1.2 cm IVSs 1.6 cm LVIDd 5.3 cm LVIDs 4.3 cm LVPWd 1.2 cm LVPWs 1.4 cm IVS/LVPW 1.1 FS 18.5 % EDV(Teich) 133.5 ml ESV(Teich) 82.9 ml EF(Teich) 37.9 % EDV(cubed) 146.3 ml ESV(cubed) 79.3 ml EF(cubed) 45.8 % % IVS thick 28.4 % % LVPW thick 20.3 % LV mass(C)d 255.0 grams LV mass(C)dI 131.9 grams/m\S\2 LV mass(C)s 257.0 grams LV mass(C)sI 132.9 grams/m\S\2 SV(Teich) 50.6 ml SI(Teich) 26.2 ml/m\S\2 SV(cubed) 67.0 ml SI(cubed) 34.6 ml/m\S\2 EPSS 1.2 cm Ao root diam 3.1 cm Ao root area 7.4 cm\S\2 ACS 1.8 cm LA dimension 4.6 cm asc Aorta Diam 2.9 cm LA/Ao 1.5 LVOT diam 2.0 cm LVOT area 3.0 cm\S\2 LVAd ap4 39.0 cm\S\2 LVLd ap4 9.2 cm EDV(MOD-sp4) 138.9 ml EDV(sp4-el) 140.7 ml LVAs ap4 31.0 cm\S\2 LVLs ap4 9.1 cm ESV(MOD-sp4) 87.3 ml ESV(sp4-el) 89.5 ml EF(MOD-sp4) 37.1 % EF(sp4-el) 36.4 % LVAd ap2 30.7 cm\S\2 LVLd ap2 8.4 cm EDV(MOD-sp2) 92.8 ml EDV(sp2-el) 95.7 ml LVAs ap2 24.5 cm\S\2 LVLs ap2 8.5 cm ESV(MOD-sp2) 59.9 ml ESV(sp2-el) 60.5 ml EF(MOD-sp2) 35.4 % EF(sp2-el) 36.8 % LVLd %diff -9.62 % EDV(MOD-bp) 116.7 ml LVLs %diff -8.11 % ESV(MOD-bp) 72.6 ml EF(MOD-bp) 37.8 % SV(MOD-sp4) 51.5 ml SI(MOD-sp4) 26.6 ml/m\S\2 SV(MOD-sp2) 32.9 ml SI(MOD-sp2) 17.0 ml/m\S\2 SV(MOD-bp) 44.2 ml SI(MOD-bp) 22.8 ml/m\S\2 SV(sp4-el) 51.2 ml SI(sp4-el) 26.5 ml/m\S\2 SV(sp2-el) 35.2 ml SI(sp2-el) 18.2 ml/m\S\2 Doppler Measurements and Calculations MV E max nadir 98.6 cm/sec MV A max nadir 74.9 cm/sec MV E/A 1.3 MV dec time 0.29 sec Ao V2 max 105.7 cm/sec Ao max PG 4.5 mmHg Ao max PG (full) 2.3 mmHg TRISH(V,A) 2.1 cm\S\2 TRISH(V,D) 2.1 cm\S\2 AI max nadir 289.6 cm/sec AI max PG 33.6 mmHg AI dec slope 183.4 cm/sec\S\2 AI P1/2t 462.5 msec LV V1 max PG 2.2 mmHg LV V1 max 74.2 cm/sec MR max nadir 502.1 cm/sec MR max PG 100.9 mmHg PA V2 max 84.6 cm/sec PA max PG 2.9 mmHg
[2017-01-23] MEDS: FUROSEMIDE INJ 20 MG in SYRINGE 0 ML IV SCH (09:23)
--- NOTE | 2017-01-23 09:28 | Pharmacy Progress Note ---
Pharmacy Glycemic Short Note 2 Date of Service Jan 23, 2017. OUTPATIENT ANTIDIABETIC REGIMEN: * Metformin ER 1000 mg PO BIDM * Glimepiride 2 mg PO BID ASSESSMENT: * 66yo T2DM male with sub-adequate outpatient control on two oral agents. Oral agents are being held for admission and pt initiated on weight based SQ basal bolus insulin regimen. * BSGs over the past 24hrs * 01/22: 412, 356, 291, 280, * 01/23: 220 * AM fasting BSG elevated --> more basal insulin is needed. Will increase dose, change to high stress weight based dosing. Lantus is not at steady state yet. Dosing may need decreased when AM fasting BSG starts trending downwards. * Post prandial BSGs are elevated --> will tighten CF/CR * Will continue to monitor daily and titrate based on BSG trends. PLAN FOR INPATIENT GLYCEMIC CONTROL: * Hold outpatient oral diabetes medications * Basal insulin * Lantus 25 units SQ x 1 dose this AM, then, * Lantus 20 units SQ BID * Bolus insulin * NovoLog per scale ACHS or Q6hrs while NPO * Goal Range: Low 110 mg/dL - High 140 mg/dL * Correction Factor: 20 mg/dL/unit * Nutritional / Prandial insulin per carb ratio of 1 unit per 7 grams CHO consumed PLAN FOR DISCHARGE: * A1c is above goal range of <7% * A1c = A1c = 8.9% on 01/22/17 * Patient may need additional oral agent vs basal insulin at discharge
[2017-01-23] MEDS: INSULIN ASPART 100 UNITS/ML 3 ML PEN SC SCH ×2 (09:34→12:15)
[2017-01-23] MEDS ORDERED: NURSING VERBAL MED ORDER ONE (10:15)
--- NOTE | 2017-01-23 12:08 | Progress Note ---
Progress Note Date of Service Jan 23, 2017. Progress Note Called by RIZWAN, patient's now at bedside, asking to speak with me. Spoke with patient and , explained clinical findings as I had previously along with my recommendations. Pt's states that she agrees with transfer to [facility] and wants it done now. Explained that transfer request will be made but that timing of transfer depends on bed availability. Pt is currently stable and will be transported by ground transport when bed available.
[2017-01-23 12:12] LABS: HEMATOCRIT 41.3 % (42-52)
--- NOTE | 2017-01-23 12:55 | Progress Note ---
Internal Med Progress Note Date of Service: Jan 23, 2017. Provider Documentation: SUBJECTIVE: No acute distress. Patient on room air speaking in full sentences OBJECTIVE: General: no acute distress HEENT: No pallor, no icterus. Pupils equal, round, and reactive to light. NECK: No JVD, no neck masses, no carotid bruits. CARDIOVASCULAR: regular rate and rhythm RESPIRATORY SYSTEM: Normal AP diameter. No accessory muscle use. No wheezing. Good air entry ABDOMEN: Soft, bowel sounds present. Nontender. No distention. CENTRAL NERVOUS SYSTEM: Cranial nerves II-XII grossly intact. Nonfocal. EXTREMITIES: Bilateral lower extremity edema present. No erythema seen. ASSESSMENT & PLAN: Imaging to Date CXR 01/22/17 No pneumothorax. Small bilateral pleural effusions. The heart is mildly enlarged. There is diffuse interstitial and vascular thickening with bibasilar densities. IMPRESSION: 1. Cardiomegaly, small bilateral pleural effusions, and interstitial thickening consistent with mild pulmonary edema. 2. Bibasilar densities may represent the layering pleural fluid or consolidation. VENOUS DOPPLER LWR EXT BILA 01/23/17 CLINICAL HISTORY: 66 years-old Male presenting with leg cramps. FINDINGS: Right: Common femoral vein: Patent. Femoral vein: Patent. Greater saphenous vein: Patent. Popliteal vein: Patent. Calf veins: Patent. Left: Common femoral vein: Patent. Femoral vein: Patent. Greater saphenous vein: Patent. Popliteal vein: Patent. Calf veins: Patent. Other: None. IMPRESSION: No evidence of deep venous thrombosis 01/23/17 * -- Conclusions -- * Normal wall thickness with mild concentric LVH. * Akinesis of the basal inferior/inferolateral and mid inferior garza. Moderate hypokinesis of the basal/mid segments of the inferoseptal, anterolateral, inferolateral and apical inferior garza. Normal wall motion of the anterior and anteroseptal garza. * Moderately reduced LV systolic function, EF 35-40%. * Grade II diastolic dysfunction. * Aortic valve sclerosis mild, without significant aortic valvular stenosis. Mild aortic regurgitation. * Moderate to severe mitral regurgitation. * Mild left atrial enlargement. * No previous studies available for comparison. Procedure Details * A complete two-dimensional transthoracic echocardiogram was performed (2D, M-mode, Doppler and color flow Doppler). * The study was technically difficult, but visualization was adequate with the administration of Definity ultrasound contrast. * A contrast injection of Definity was performed to improve assessment of LV function. * Contrast was injected into an intravenous site in the left arm. * One vial of Definity ultrasound contrast was diluted in normal saline to a total volume of 10 ml. A total of '3' ml of solution was administered during imaging. * Lot # [id number] of Definity utilized for procedure. * Expiration date 1FEB. * The attending nurse who injected the contrast agent was Karen Preciado RN. Left Ventricle * The left ventricle is normal in size. * There is no thrombus. * There is mild concentric left ventricular hypertrophy. * Left ventricular systolic function is moderately reduced. * Ejection Fraction = 35-40%. * Akinesis of the basal inferior/inferolateral and mid inferior garza. Moderate hypokinesis of the basal/mid segments of the inferoseptal, anterolateral, inferolateral and apical inferior garza. Normal wall motion of the anterior and anteroseptal garza. Right Ventricle * The right ventricular cavity size is normal (basal dimension <4.2 cm in right ventricular apical 4-chamber view). * The right ventricular systolic function is normal as assessed by tricuspid annular plane systolic excursion (TAPSE) (normal >1.5 cm). Atria * The left atrium is mildly dilated. * Right atrial size is normal. * No ASD detected; PFO is not assessed. Mitral Valve * The mitral valve leaflets appear thickened, but open well. * There is no mitral valve stenosis. * There is moderate to severe mitral regurgitation. * The mitral regurgitant jet is eccentrically directed. Tricuspid Valve * The tricuspid valve is normal in structure and function. Aortic Valve * The aortic valve is trileaflet. * Aortic valve sclerosis mild, without significant aortic valvular stenosis. * Mild aortic regurgitation. Pulmonic Valve * The pulmonary valve is not well seen, but the Doppler examination is normal without significant regurgitation or stenosis. Great Vessels * The aortic root and proximal ascending aorta are normal sized. Pericardium/Pleural * There is no pericardial effusion. Left Ventricular Diastolic Function * Diastolic dysfunction, Grade II (pseudonormalization pattern). Hospital Course As per admitting internal medicine physician on 01/22/17: This is a 66-year-old male who presents with chest pain - Unstable angina, having chest pains every hour in the night taking nitroglycerins, history of coronary artery disease and multivessel disease from cardiac catheterization in 2008 and was advised of coronary artery bypass grafting, but the patient declined and currently on medical management. EKG shows ST depressions in lateral leads. Patient was started on IV heparin. As per night float internal medicine physician covering the medical service between 01/22/17 to 01/23/17 "Hematuria noted by RN through Odonnell catheter. Patient denies flank pain, bladder symptoms. UA WBC est, RBC, epithelial cells Hematuria secondary to ? Complicated UTI hx bladder stones/bilateral hydroureter as per records. Contaminated specimen. Patient not septic. Hold IV heparin for now. Trend H&H. Follow urine cultures, IV Cefepime." Patient evaluated by Cardiology service on 01/23/17 and found to have akinesis / hypokinesis of wall motion, reduced Ejection fraction, and Moderate to severe mitral regurgitation. Patient to be transferred to [facility] in [place] (Dr. Klever Vincent is the accepting physician and [facility]) Vital Signs: Date Time Temp Pulse Resp B/P (MAP) Pulse Ox O2 Delivery O2 Flow Rate FiO2 01/23/17 12:30 Room Air 01/23/17 10:57 37.2 75 20 131/77 (95) 92 Room Air 01/23/17 07:45 Room Air 01/23/17 07:16 37.1 71 20 145/81 (102) 94 Room Air 01/23/17 04:00 92 Room Air 01/23/17 03:34 36.7 79 18 148/77 (100) 92 Room Air 01/23/17 00:00 92 Room Air 01/22/17 23:27 36.4 74 18 133/80 (97) 92 Room Air 01/22/17 20:22 36.5 76 20 156/87 (110) 93 Room Air 01/22/17 20:00 92 Room Air 01/22/17 17:51 91 Room Air 01/22/17 17:32 36.3 76 20 155/92 91 Room Air 01/22/17 17:19 75 17 136/87 93 Nasal Cannula 2.0 01/22/17 16:49 81 01/22/17 16:00 76 19 93 01/22/17 15:30 78 14 93 01/22/17 15:00 83 17 01/22/17 14:31 173/92 01/22/17 14:30 81 20 94 01/22/17 14:01 145/91 01/22/17 14:00 77 20 94 01/22/17 13:42 80 159/85 92 Nasal Cannula 2.0 01/22/17 13:31 159/85 01/22/17 13:30 81 16 91 Lab Results: Results Past 24 Hours Test 01/22/17 14:13 01/22/17 14:42 01/22/17 15:27 01/22/17 18:02 Range/Units Arterial Blood pH 7.43 7.35-7.45 Arterial Blood Partial Pressure CO2 33 35-46 mmHg Arterial Blood Partial Pressure O2 75 80-95 mm/Hg Arterial Blood HCO3 21 19-24 mmol/L Arterial Blood Oxygen Saturation 94.7 90-95 % Arterial Blood Base Excess -2.0 -9-1.8 mEq/L Arterial Blood Gas Delivery RA Misha Test POS POS Bedside Glucose 356 334 291 70-99 mg/dl Test 01/22/17 19:51 01/22/17 21:45 01/23/17 04:09 01/23/17 07:27 Range/Units Bedside Glucose 280 221 70-99 mg/dl White Blood Count 9.76 11.03 4.8-10.8 K/uL Red Blood Count 4.71 4.55 4.7-6.1 M/uL Hemoglobin 14.3 13.4 14.0-18.0 g/dL Hematocrit 39.2 38.2 42-52 % Mean Corpuscular Volume 83.2 84.0 80-100 fL Mean Corpuscular Hemoglobin 30.4 29.5 25-34 pg Mean Corpuscular Hemoglobin Concent 36.5 35.1 32-36 g/dl Platelet Count 213 217 130-400 K/uL Mean Platelet Volume 10.2 10.5 7.4-10.4 fL Neutrophils (%) (Auto) 55.1 68.0 % Lymphocytes (%) (Auto) 33.0 21.3 % Monocytes (%) (Auto) 8.3 8.3 % Eosinophils (%) (Auto) 2.4 1.6 % Basophils (%) (Auto) 0.7 0.5 % Neutrophils # (Auto) 5.38 7.51 1.4-6.5 K/uL Lymphocytes # (Auto) 3.22 2.35 1.2-3.4 K/uL Monocytes # (Auto) 0.81 0.91 0.11-0.59 K/uL Eosinophils # (Auto) 0.23 0.18 0-0.5 K/uL Basophils # (Auto) 0.07 0.05 0-0.2 K/uL RDW Standard Deviation 45.3 45.2 36.4-46.3 fL RDW Coefficient of Variation 15.0 14.9 11.5-14.5 % Immature Granulocyte % (Auto) 0.5 0.3 % Immature Granulocyte # (Auto) 0.05 0.03 0.00-0.02 K/uL Sodium Level 136 133 136-145 mmol/L Potassium Level 3.2 4.4 3.5-5.1 mmol/L Chloride Level 102 102 98-107 mmol/L Carbon Dioxide Level 25 24 21-32 mmol/L Anion Gap 9.0 7.0 3-11 mmol/L Blood Urea Nitrogen 37 37 7-18 mg/dl Creatinine 2.07 1.96 0.60-1.40 mg/dl Est Creatinine Clear Calc Drug Dose 36.0 38.0 ml/min Estimated GFR () 37.6 40.1 Estimated GFR (Non- 32.4 34.6 BUN/Creatinine Ratio 17.8 19.0 10-20 Random Glucose 187 220 70-99 mg/dl Calcium Level 9.5 9.2 8.5-10.1 mg/dl Magnesium Level 1.7 1.8 1.8-2.4 mg/dl Troponin I 0.090 0.064 0-0.045 ng/ml Activated Partial Thromboplast Time 24.5 21.0-31.0 SECONDS Partial Thromboplastin Ratio 0.9 Triglycerides Level 329 0-150 mg/dl Cholesterol Level 238 0-200 mg/dl HDL Cholesterol 32 mg/dl LDL Cholesterol, Calculated 140 mg/dl VLDL Cholesterol, Calculated 66 mg/dl Cholesterol/HDL Ratio 7.4 Test 01/23/17 08:12 01/23/17 11:09 01/23/17 12:00 Range/Units Troponin I 0.092 0-0.045 ng/ml Bedside Glucose 342 70-99 mg/dl Hemoglobin 14.9 14.0-18.0 g/dL Hematocrit 41.3 42-52 %
--- NOTE | 2017-01-23 13:29 | Discharge Summary ---
Discharge Summary Date of Service Jan 23, 2017. Discharge Summary Admission Date: Jan 22, 2017 at 16:08 Discharge Disposition: Acute care facility ([facility] in [place]) Principal Diagnosis: chest pain, hematuria on IV heparin found to have akinesis / hypokinesis of wall motion, reduced Ejection fraction, and Moderate to severe mitral regurgitation Admission Information HPI (per Admitting provider): CHIEF COMPLAINT: Chest pain. HISTORY OF PRESENT ILLNESS: This is a 66-year-old male with past medical history significant for CAD, type 2 diabetes, hypertension, hyperlipidemia, BPH, presents with chest pain. The patient had a cardiac catheterization about in 2008 which showed multivessel disease and was advised for CABG. 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 He says he did not had any help to come to the ER, so he came to the ER today. In the ER initially when he came in he was hypoxic on room air and chest x-ray showed some congestion with Lasix and oxygen his oxygenation has improved. He is hemodynamically stable. Denies any nausea, vomiting, no sweating, no dizziness, no headaches, no blurred vision, no cough, no fever, no chills. Has some runny nose. No sore throat, no difficulty swallowing. Normal bowel and bladder movements. Appetite is okay. No blood in the stool, no blood in the urine, had some swelling in the legs, but denies any orthopnea or PND. ALLERGIES: LISINOPRIL, CIPROFLOXACIN. PAST MEDICAL HISTORY: As mentioned above. PAST SURGICAL HISTORY: Cardiac catheterization. MEDICATIONS: Currently, the patient is on Isordil 10 mg p.o. t.i.d., amlodipine 5 mg p.o. daily, nitroglycerin 0.6 mg sublingual p.r.n., metformin ER 1000 mg p.o. daily, Januvia 50 mg p.o. daily, Amaryl 2 mg p.o. b.i.d., Bystolic 20 mg p.o. daily, aspirin 81 mg p.o. daily. FAMILY HISTORY: Significant for father had PR in his 40s and 60s and of PR in his 70s. Mother has renal disease history. SOCIAL HISTORY: . No smoking history. No alcohol, no drug use. REVIEW OF SYMPTOMS: As per HPI. Rest of the review of symptoms negative. Physical Exam (per Admitting): PHYSICAL EXAMINATION: GENERAL: The patient is of moderate build, not in distress. VITAL SIGNS: Temperature 37.1, pulse 80, respiratory rate 16, blood pressure 159/85, oxygen 92% on 2 liters. HEENT: No pallor, no icterus. Pupils equal, round, and reactive to light. NECK: No JVD, no neck masses, no carotid bruits. CARDIOVASCULAR: S1, S2 heard, regular rate and rhythm, no murmur, no gallop. RESPIRATORY SYSTEM: Normal AP diameter. No accessory muscle use. No wheezing. Mild bibasilar crackles. ABDOMEN: Soft, bowel sounds present. Nontender. No distention. CENTRAL NERVOUS SYSTEM: Cranial nerves II-XII grossly intact. Nonfocal. EXTREMITIES: Bilateral lower extremity edema present. No erythema seen. Hospital Course Imaging to Date CXR 01/22/17 No pneumothorax. Small bilateral pleural effusions. The heart is mildly enlarged. There is diffuse interstitial and vascular thickening with bibasilar densities. IMPRESSION: 1. Cardiomegaly, small bilateral pleural effusions, and interstitial thickening consistent with mild pulmonary edema. 2. Bibasilar densities may represent the layering pleural fluid or consolidation. VENOUS DOPPLER LWR EXT BILA 01/23/17 CLINICAL HISTORY: 66 years-old Male presenting with leg cramps. FINDINGS: Right: Common femoral vein: Patent. Femoral vein: Patent. Greater saphenous vein: Patent. Popliteal vein: Patent. Calf veins: Patent. Left: Common femoral vein: Patent. Femoral vein: Patent. Greater saphenous vein: Patent. Popliteal vein: Patent. Calf veins: Patent. Other: None. IMPRESSION: No evidence of deep venous thrombosis 01/23/17 * -- Conclusions -- * Normal wall thickness with mild concentric LVH. * Akinesis of the basal inferior/inferolateral and mid inferior garza. Moderate hypokinesis of the basal/mid segments of the inferoseptal, anterolateral, inferolateral and apical inferior garza. Normal wall motion of the anterior and anteroseptal garza. * Moderately reduced LV systolic function, EF 35-40%. * Grade II diastolic dysfunction. * Aortic valve sclerosis mild, without significant aortic valvular stenosis. Mild aortic regurgitation. * Moderate to severe mitral regurgitation. * Mild left atrial enlargement. * No previous studies available for comparison. Procedure Details * A complete two-dimensional transthoracic echocardiogram was performed (2D, M-mode, Doppler and color flow Doppler). * The study was technically difficult, but visualization was adequate with the administration of Definity ultrasound contrast. * A contrast injection of Definity was performed to improve assessment of LV function. * Contrast was injected into an intravenous site in the left arm. * One vial of Definity ultrasound contrast was diluted in normal saline to a total volume of 10 ml. A total of '3' ml of solution was administered during imaging. * Lot # [id number] of Definity utilized for procedure. * Expiration date . * The attending nurse who injected the contrast agent was Karen Preciado RN. Left Ventricle * The left ventricle is normal in size. * There is no thrombus. * There is mild concentric left ventricular hypertrophy. * Left ventricular systolic function is moderately reduced. * Ejection Fraction = 35-40%. * Akinesis of the basal inferior/inferolateral and mid inferior garza. Moderate hypokinesis of the basal/mid segments of the inferoseptal, anterolateral, inferolateral and apical inferior garza. Normal wall motion of the anterior and anteroseptal garza. Right Ventricle * The right ventricular cavity size is normal (basal dimension <4.2 cm in right ventricular apical 4-chamber view). * The right ventricular systolic function is normal as assessed by tricuspid annular plane systolic excursion (TAPSE) (normal >1.5 cm). Atria * The left atrium is mildly dilated. * Right atrial size is normal. * No ASD detected; PFO is not assessed. Mitral Valve * The mitral valve leaflets appear thickened, but open well. * There is no mitral valve stenosis. * There is moderate to severe mitral regurgitation. * The mitral regurgitant jet is eccentrically directed. Tricuspid Valve * The tricuspid valve is normal in structure and function. Aortic Valve * The aortic valve is trileaflet. * Aortic valve sclerosis mild, without significant aortic valvular stenosis. * Mild aortic regurgitation. Pulmonic Valve * The pulmonary valve is not well seen, but the Doppler examination is normal without significant regurgitation or stenosis. Great Vessels * The aortic root and proximal ascending aorta are normal sized. Pericardium/Pleural * There is no pericardial effusion. Left Ventricular Diastolic Function * Diastolic dysfunction, Grade II (pseudonormalization pattern). Hospital Course As per admitting internal medicine physician on 01/22/17: This is a 66-year-old male who presents with chest pain - Unstable angina, having chest pains every hour in the night taking nitroglycerins, history of coronary artery disease and multivessel disease from cardiac catheterization in 2008 and was advised of coronary artery bypass grafting, but the patient declined and currently on medical management. EKG shows ST depressions in lateral leads. Patient was started on IV heparin. As per night float internal medicine physician covering the medical service between 01/22/17 to 01/23/17 "Hematuria noted by RN through Odonnell catheter. Patient denies flank pain, bladder symptoms. UA WBC est, RBC, epithelial cells Hematuria secondary to ? Complicated UTI hx bladder stones/bilateral hydroureter as per records. Contaminated specimen. Patient not septic. Hold IV heparin for now. Trend H&H. Follow urine cultures, IV Cefepime." Patient evaluated by Cardiology service on 01/23/17 and found to have akinesis / hypokinesis of wall motion, reduced Ejection fraction, and Moderate to severe mitral regurgitation. Patient to be transferred to [facility] in [place] (Dr. Klever Vincent is the accepting physician and [facility]) Total time spent on discharge = 60 minutes This includes examination of the patient, discharge planning, medication reconciliation, and communication with other providers. Discharge Instructions see above
--- NOTE | 2017-01-23 13:59 | CARDIOLOGY CONSULTATION ---
DATE OF CONSULTATION: 01/23/2017 CONSULTATION REQUESTED BY: Dr. Rios. REASON FOR CONSULTATION: Chest pain with severe underlying coronary artery disease. HISTORY OF PRESENT ILLNESS: Mr. Bright is a 66-year-old gentleman, who normally follows with Dr. Johnson of our cardiology practice. He presented to the [facility] Emergency on 01/22/2017 with a complaint of chest pain. The patient was actually seen in our office by Magui Aaron PA-C on 01/21/2017 when he complained of 4 weeks of worsening chest pain. At that time, the patient was recommended to go emergently to the ER for emergent evaluation; however, the patient refused. He then presented to the Emergency Department on the . He states that he has had chronic stable angina for several years now ever since going under catheterization in 2008. He states, however, though his angina has significantly worsened over the last 4 weeks. He states he has been having his normal anginal pain with less and less activity. When he does have the pain, he describes this as a substernal pressure/sharp stabbing sensation that now radiates across his precordium, which did not before. He states this will occur if he carries anything heavy or walks any significant distances. He denies any other associated symptoms with it. He specifically denied any associated radiation of the discomfort, diaphoresis, shortness of breath, nausea, palpitations, lightheadedness, dizziness or syncope. The patient relates that over the past 3 years, he has used a total of 2 bottles of nitroglycerin; however, over the last 4 weeks, he has gone through 3 bottles. He states that when he does have the discomfort, one sublingual nitroglycerin will resolve the discomfort. Of note, the patient underwent cardiac catheterization at [facility] in 2008, where he was found to have multivessel coronary artery disease and coronary bypass grafting surgery was recommended at that time; however, the patient refused. He has been following with Dr. Johnson off and on since then and again multiple recommendations have been made for further intervention and again the patient has refused these. He states that he preferred to treat it with alternative therapy. PAST SURGICAL HISTORY: Cardiac catheterization in November 2008. MEDICAL ILLNESSES: 1. Multivessel coronary artery disease, refusing bypass grafting surgery. 2. Diabetes. 3. Hypertension. 4. Hyperlipidemia. 5. BPH. 6. History of obstructive uropathy. 7. Medical noncompliance. FAMILY HISTORY: Noncontributory. SOCIAL HISTORY: Denies any alcohol, tobacco or recreational drug use. He is and he lives at home with his . REVIEW OF SYSTEMS: As per HPI. All other review of systems reviewed and negative at this time. ALLERGIES: 1. LISINOPRIL. 2. CIPRO. MEDICATIONS AN OUTPATIENT: 1. Aspirin 81 mg daily. 2. Bystolic 20 mg daily. 3. Amlodipine 5 mg daily. 4. Isordil 10 mg 3 times a day. 5. The patient was also previously prescribed hydralazine; however, he was not taking it as directed. 6. Metformin 500 mg b.i.d. 7. Januvia daily. 8. Amaryl b.i.d. PHYSICAL EXAMINATION: VITALS: Temperature 37.1, pulse 71, respiratory rate 12, blood pressure 145/81, and saturating 94% on room air. GENERAL: Awake, alert, and oriented x3, in no acute distress. HEENT: Normocephalic and atraumatic. Pupils are equal, round and reactive to light and accommodation. Extraocular muscles intact. Anicteric sclerae. Moist mucous membranes. NECK: No JVD. No bruit. CARDIOVASCULAR: Regular. Positive S4. Normal S1 and S2. A 3/6 holosystolic ejection murmur greatest at the left sternal border midclavicular line, fifth intercostal space with radiation to the left axilla. No rubs. PULMONARY: Clear to auscultation bilaterally. No rales, rhonchi, or wheezing. ABDOMEN: Bowel sounds x4, soft. No rebound, guarding, or tenderness. No organomegaly. EXTREMITIES: No clubbing, cyanosis or edema. +2 pedal pulses bilaterally. SKIN: Warm and dry. TEST RESULTS: A 12-lead EKG performed in the Emergency Department independently reviewed at this time shows normal sinus rhythm at 86 beats per minute, left axis deviation, significant ST segment depressions in the anterior lateral leads. LABORATORY STUDIES OF SIGNIFICANCE: Troponin of 0.09 followed by 0.6 followed by 0.09. Triglycerides 329, total cholesterol 238, LDL 140, and HDL 32. Sodium 133, potassium 4.4, BUN 37, and creatinine 1.96. A 2D echocardiogram was read as normal chamber size with mild concentric LVH, akinesis of the basal inferior/inferolateral and mid inferior garza, moderate hypokinesis of the basal/mid segments of the inferior septal, anterolateral, inferolateral and apical inferior garza. Normal wall motion of the anterior and anterior septal garza. Moderately reduced LV systolic function, EF 35%-40%. Grade 2 diastolic dysfunction. Mild aortic valve sclerosis without stenosis, mild aortic regurgitation, moderate to severe mitral regurgitation, and mild left atrial enlargement. No previous studies available for comparison. Cardiac catheterization report from November 2008 reported that the left main has 30% distal stenosis, the LAD is a large vessel and wraps around the apex with 50% ostial stenosis followed by 70% proximal stenosis. In the location of the 70% proximal stenosis, a moderate size first diagonal branch was given off and there is a 90% long ostial to proximal stenosis. The left circumflex is a large vessel with 70% ostial stenosis. There is a very high takeoff of the large OM1 branch with 90% ostial stenosis. OM2 with a long 50% stenosis and OM3 has luminal irregularities. The right coronary artery is a dominant vessel. It parents a large RV marginal with 50% mid stenosis. Left ventriculography showed an overall EF of 60% with no regional wall motion abnormalities. IMPRESSION: 1. Unstable angina. 2. New ischemic cardiomyopathy. 3. Moderate to severe mitral regurgitation. 4. Medical noncompliance. 5. Diabetes. 6. Hypertension. 7. Dyslipidemia. RECOMMENDATIONS: Mr. Bright was counseled that given his worsening symptoms, his new wall motion abnormality, his reduced systolic function, his new moderate to severe mitral regurgitation and his worsening renal function. At this point in time, I recommend he be transferred to the tertiary center at [facility] in [place] for high risk cardiac catheterization for further evaluation of his coronary anatomy. He was also instructed given the fact that he refused surgery 9 years ago, then obviously his disease has worsened and that there are no guarantees at this point that his disease would even be intervenable upon. The patient states that he understands, but wishes to talk it over with his first. He would like to wait for her arrival. I again reiterated in no uncertain terms that my recommendation is for him to be transferred to a tertiary medical center for high risk cardiac catheterization. Again, he states he understands, but wants to talk to his first. He is now pain free. He has a nitroglycerine paste. He is on heparin drip with only minimal troponin leak and these medications should be continued along with his aspirin, Bystolic and Norvasc.
[2017-01-23] MEDS ORDERED: CYCLOBENZAPRINE HCL 5 MG TAB PO STA (14:00)
--- NOTE | 2017-01-23 16:23 | Discharge Instructions ---
Discharge Instructions Date of Service Jan 23, 2017. Admission Reason for Admission: Unstable Angina Discharge Discharge Diagnosis / Problem: chest pain, reduced cardiac ejection fraction, cardiac wall hypokinesis Discharge Goals Goal(s): Improve disease control Activity Recommendations Activity Limitations: per Instructions/Follow-up section . Instructions / Follow-Up Instructions / Follow-Up Hospital Course Imaging to Date CXR 01/22/17 No pneumothorax. Small bilateral pleural effusions. The heart is mildly enlarged. There is diffuse interstitial and vascular thickening with bibasilar densities. IMPRESSION: 1. Cardiomegaly, small bilateral pleural effusions, and interstitial thickening consistent with mild pulmonary edema. 2. Bibasilar densities may represent the layering pleural fluid or consolidation. VENOUS DOPPLER LWR EXT BILA 01/23/17 CLINICAL HISTORY: 66 years-old Male presenting with leg cramps. FINDINGS: Right: Common femoral vein: Patent. Femoral vein: Patent. Greater saphenous vein: Patent. Popliteal vein: Patent. Calf veins: Patent. Left: Common femoral vein: Patent. Femoral vein: Patent. Greater saphenous vein: Patent. Popliteal vein: Patent. Calf veins: Patent. Other: None. IMPRESSION: No evidence of deep venous thrombosis 01/23/17 * -- Conclusions -- * Normal wall thickness with mild concentric LVH. * Akinesis of the basal inferior/inferolateral and mid inferior garza. Moderate hypokinesis of the basal/mid segments of the inferoseptal, anterolateral, inferolateral and apical inferior garza. Normal wall motion of the anterior and anteroseptal garza. * Moderately reduced LV systolic function, EF 35-40%. * Grade II diastolic dysfunction. * Aortic valve sclerosis mild, without significant aortic valvular stenosis. Mild aortic regurgitation. * Moderate to severe mitral regurgitation. * Mild left atrial enlargement. * No previous studies available for comparison. Procedure Details * A complete two-dimensional transthoracic echocardiogram was performed (2D, M-mode, Doppler and color flow Doppler). * The study was technically difficult, but visualization was adequate with the administration of Definity ultrasound contrast. * A contrast injection of Definity was performed to improve assessment of LV function. * Contrast was injected into an intravenous site in the left arm. * One vial of Definity ultrasound contrast was diluted in normal saline to a total volume of 10 ml. A total of '3' ml of solution was administered during imaging. * Lot # [id number] of Definity utilized for procedure. * Expiration date . * The attending nurse who injected the contrast agent was Karen Preciado RN. Left Ventricle * The left ventricle is normal in size. * There is no thrombus. * There is mild concentric left ventricular hypertrophy. * Left ventricular systolic function is moderately reduced. * Ejection Fraction = 35-40%. * Akinesis of the basal inferior/inferolateral and mid inferior garza. Moderate hypokinesis of the basal/mid segments of the inferoseptal, anterolateral, inferolateral and apical inferior garza. Normal wall motion of the anterior and anteroseptal garza. Right Ventricle * The right ventricular cavity size is normal (basal dimension <4.2 cm in right ventricular apical 4-chamber view). * The right ventricular systolic function is normal as assessed by tricuspid annular plane systolic excursion (TAPSE) (normal >1.5 cm). Atria * The left atrium is mildly dilated. * Right atrial size is normal. * No ASD detected; PFO is not assessed. Mitral Valve * The mitral valve leaflets appear thickened, but open well. * There is no mitral valve stenosis. * There is moderate to severe mitral regurgitation. * The mitral regurgitant jet is eccentrically directed. Tricuspid Valve * The tricuspid valve is normal in structure and function. Aortic Valve * The aortic valve is trileaflet. * Aortic valve sclerosis mild, without significant aortic valvular stenosis. * Mild aortic regurgitation. Pulmonic Valve * The pulmonary valve is not well seen, but the Doppler examination is normal without significant regurgitation or stenosis. Great Vessels * The aortic root and proximal ascending aorta are normal sized. Pericardium/Pleural * There is no pericardial effusion. Left Ventricular Diastolic Function * Diastolic dysfunction, Grade II (pseudonormalization pattern). Hospital Course As per admitting internal medicine physician on 01/22/17: This is a 66-year-old male who presents with chest pain - Unstable angina, having chest pains every hour in the night taking nitroglycerins, history of coronary artery disease and multivessel disease from cardiac catheterization in 2008 and was advised of coronary artery bypass grafting, but the patient declined and currently on medical management. EKG shows ST depressions in lateral leads. Patient was started on IV heparin. As per night float internal medicine physician covering the medical service between 01/22/17 to 01/23/17 "Hematuria noted by RN through Odonnell catheter. Patient denies flank pain, bladder symptoms. UA WBC est, RBC, epithelial cells Hematuria secondary to ? Complicated UTI hx bladder stones/bilateral hydroureter as per records. Contaminated specimen. Patient not septic. Hold IV heparin for now. Trend H&H. Follow urine cultures, IV Cefepime." Patient evaluated by Cardiology service on 01/23/17 and found to have akinesis / hypokinesis of wall motion, reduced Ejection fraction, and Moderate to severe mitral regurgitation. Patient to be transferred to [facility] in [place] (Dr. Klever Vincent is the accepting physician and C) Current Hospital Diet Patient's current hospital diet: AHA Diet (Heart Healthy), Diabetes Type 2 Diet Discharge Diet Recommended Diet: AHA Diet (Heart Healthy), Diabetes Type 2 Diet Pending Studies Studies pending at discharge: no Laboratory Results Hemoglobin A1c Test 01/22/17 12:47 Range/Units Estimated Average Glucose 209 mg/dl Hemoglobin A1c 8.9 H 4.5-5.6 % Lipid Panel Test 01/23/17 04:09 Range/Units Triglycerides Level 329 H 0-150 mg/dl Cholesterol Level 238 H 0-200 mg/dl HDL Cholesterol 32 mg/dl Cholesterol/HDL Ratio 7.4 LDL Cholesterol, Calculated 140 mg/dl Medical Emergencies . Who to Call and When: Medical Emergencies: If at any time you feel your situation is an emergency, please call 911 immediately. . Non-Emergent Contact Non-Emergency issues call your: Primary Care Provider . . "Provider Documentation" section prepared by Parveen Edwards. . VTE Core Measure Inpt VTE Proph given/why not?: Other Anticoagulation (heparin IV drip )
[2017-01-24] MEDS ORDERED: CEFEPIME IV 2,000 MG in SYRINGE 7.5 ML IV SCH
[2017-01-24] MEDS ORDERED: INSULIN ASPART 100 UNITS/ML 3 ML PEN SC SCH
== END 2017-01-23 16:28 | disposition short-term general hospital (02) | DRG 303 ==
LOC: C.EDB 12:29 → C.MED 16:08 → ENRESERV 16:59
PROVIDERS: ADMIT Hospitalist; ATTEND Hospitalist
DX: I25.110 Atherosclerotic heart disease of native coronary artery with unstable angina pectoris (principal); N17.9 Acute kidney failure, unspecified; D68.32 Hemorrhagic disorder due to extrinsic circulating anticoagulants; I25.5 Ischemic cardiomyopathy; R93.1 Abnormal findings on diagnostic imaging of heart and coronary circulation; I34.0 Nonrheumatic mitral (valve) insufficiency; R09.02 Hypoxemia; R31.0 Gross hematuria; T45.515A Adverse effect of anticoagulants, initial encounter; Y92.230 Patient room in hospital as the place of occurrence of the external cause; I12.9 Hypertensive chronic kidney disease with stage 1 through stage 4 chronic kidney disease, or unspecified chronic kidney disease; E11.22 Type 2 diabetes mellitus with diabetic chronic kidney disease; E11.65 Type 2 diabetes mellitus with hyperglycemia; N18.3 Chronic kidney disease, stage 3 (moderate); N40.0 Benign prostatic hyperplasia without lower urinary tract symptoms; Z91.19 Patient's noncompliance with other medical treatment and regimen; Z91.14 Patient's other noncompliance with medication regimen; Z82.49 Family history of ischemic heart disease and other diseases of the circulatory system; Z79.82 Long term (current) use of aspirin; Z79.84 Long term (current) use of oral hypoglycemic drugs; Z79.899 Other long term (current) drug therapy

== ENCOUNTER 2017-02-26 03:10 | Emergency (ER) | payer OTHER ==
[~2017-02-26 03:10] MED LIST: AMLO-110 PO; ASCO100061 PO; ASPI81TA28 PO; GLIM2TAB2 PO; ISOS10TA2 PO; METF500T5 PO; MULT-506 PO; NEBI20TA2 PO; [UNRECOGNIZED DRUG - CODE] UT
[2017-02-26] MEDS ORDERED: DEXTROSE 5% 100 ML BAG IV ONE (03:12)
[2017-02-26] MEDS ORDERED: SODIUM CHLORIDE 0.9% 10ML FLUSH IV ONE (03:12)
--- NOTE | 2017-02-26 04:35 | EMERGENCY ROOM VISIT NOTE ---
History First contact with patient: 03:30 Chief Complaint: CARDIAC ARREST Stated Complaint: CARDIAC ARREST History of Present Illness The patient is a 66 year old male who presents to the Emergency Room due to cardiac arrest. He has limited secondary to medical acuity. The patient was reportedly complaining of back pain for several days. He was found unresponsive by his and apparently had fallen out of bed. When police arrived on scene the patient was unresponsive and then went into cardiac arrest. They started CPR. EMS arrived and initiated ACLS. Patient received CPR, 5 rounds of epinephrine, 1 shock, and had an attempt at intubation. Medics were unable to intubate him and therefore a Gaurang airway was placed. They were able to ventilate him easily with this. A Jeffry device was used to assist with CPR however this was discontinued and manual CPR initiated secondary to dehiscence of his skin in the area of his median sternotomy. EMS noted that the patient had one change in rhythm during his multiple doses of epinephrine to what appeared to be possible V. tach. He was shocked one time before that and it resulted in asystole. The patient arrived in the emergency department in full cardiac arrest. Review of Systems Unobtainable secondary to medical acuity. Past Medical/Surgical History Medical Problems: (1) Bladder stone (2) Diabetes (3) Heart disease (4) HTN (hypertension) (5) Kidney disease (6) Unstable angina Family History Heart disease Hypertension Kidney disease Kidney stones Social History Smoking Status: Unknown if Ever Smoked Alcohol Use: none Marital Status: Housing Status: lives with family Occupation Status: employed Current/Historical Medications Scheduled Amlodipine (Norvasc), 5 MG PO DAILY Ascorbic Acid (Ascorbic Acid), 1,000 MG PO DAILY Aspirin (Aspirin Ec), 81 MG PO DAILY Glimepiride (Glimepiride), 1 TAB PO BID Isosorbide Dinitrate (Isordil), 10 MG PO TID Metformin Hcl Er (Glucophage Er), 2 TABS PO DAILY Multivitamin (Multivitamin), 1 TAB PO DAILY Nebivolol Hcl (Bystolic), 20 MG PO DAILY Nitroglycerin (Nitrostat), 0.6 MG UT PRN Physical Exam Vital Signs Date Time Temp Pulse Resp B/P (MAP) Pulse Ox O2 Delivery O2 Flow Rate FiO2 02/26/17 03:40 02/26/17 03:11 Room Air Physical Exam GENERAL: Unconscious, unresponsive, Gaurang airway in place. HENT: Normocephalic, atraumatic. Oropharynx unremarkable. Gaurang airway in place. EYES: Normal conjunctiva. Sclera non-icteric. NECK: No tracheal deviation, No JVD. RESPIRATORY: Breath sounds equal bilaterally. CARDIAC: No pulse. No heart sounds. ABDOMEN: Soft, non-distended. No masses. RECTAL: Deferred. MUSCULOSKELETAL: Atraumatic. LOWER EXTREMITIES: Mottled discoloration. NEURO: GCS of 3 SKIN: No rash or jaundice noted. Medical Decision & Procedures ER Provider Diagnostic Interpretation: Limited bedside cardiac ultrasound performed by me and revealed cardiac standstill. No pericardial effusion. No free fluid noted within worsens out or the abdomen. Procedure 1. CPR 2. Endotracheal Intubation Indication cardiac arrest. The patient was being ventilated with a Gaurang airway prior to the procedure. Suction, airway equipment, respiratory equipment, and appropriate personnel were prepared prior to the initiation of the procedure. The airway was easily visualized utilizing a glide scope. A 7.5 size ETT tube was placed atraumatically using standard technique. The cuff inflated without signs of malfunction. There were bilateral breath sounds, positive colormetric change, no gastric sounds. There were no complications. 3. Defibrillation 1 Medical Decision Additional history obtained from EMS. The patient's history was concerning for cardiac arrest. Differential diagnosis: Etiologies such as cardiac ischemia, aortic dissection, pulmonary embolism, electrolyte abnormality, acidosis, tension pneumothorax, hypothermia, hypovolemia, intracranial event, as well as others were entertained. Physical examination: The patient was unconscious and mottled. ER treatment provided: IV push epinephrine Intubation CPR Defibrillation 1 360 J IV fluid Diagnostics interpreted by me: Limited bedside ultrasound as above. Cardiac standstill. Course: The patient was in cardiac arrest. Full ACLS protocol was initiated by nc. Code blue personnel were present. The patient received additional doses of IV epinephrine following ACLS protocol. CPR was continued. The patient was given fluids. Unfortunately he was in cardiac standstill and this did not change. The patient was defibrillated 1 for an apparent change in rhythm. This had no effect. He had the ultrasound rechecked and was still in cardiac standstill. Point given the duration from onset of his arrest the patient was pronounced at 0328 hours. The patient's was notified in person by and Lubna the charge nurse. Impression Primary Impression: Cardiac arrest Critical Care I have personally spent greater than 30 minutes of critical care time in the direct management of this patient. This includes medical command, bedside care discussion police, EMS, and family members, and other required patient management activities. This 30 minutes is in excess of all separately billable procedures. Departure Information Dispostion Referrals Klever Jacome M.D.(APOLINAR) (PCP) Patient Instructions My [facility]
== END 2017-02-26 03:40 | disposition expired ==
LOC: EDBD 03:10 → C.EDB 03:11 → C.EDA 03:40
DX: I46.9 Cardiac arrest, cause unspecified (principal); E11.9 Type 2 diabetes mellitus without complications; I10 Essential (primary) hypertension; Z79.82 Long term (current) use of aspirin; Z79.84 Long term (current) use of oral hypoglycemic drugs; Z82.49 Family history of ischemic heart disease and other diseases of the circulatory system; Z84.1 Family history of disorders of kidney and ureter